=== PATIENT | female | born 1970 | race Native Hawaiian/Other Pacific Islander ===

== ENCOUNTER 2020-12-05 10:45 | Emergency (ER) | payer BC, OTHER ==
[2020-12-05] MEDS ORDERED: LORazepam 2 MG/ML VIAL IV ONE (11:03)
--- NOTE | 2020-12-05 11:04 | Emergency Department Report ---
HPI - General Chief Complaint: Allergic Reaction Time Seen by Provider: 12/05/20 10:47 - HPI HPI: Room 20 Patient is a 50-year-old female present with a chief complaint of vaccination reaction. The patient states she received Moderna COVID-19 vaccination this morning at 09:30. The patient states in less than 10 minutes she developed blurred vision, shortness of breath, numbness to the right hand and feeling as though her voice was not clear. Patient denies itching or pain of any type. The patient states her blurred vision has improved and her voice is improving but is not back to baseline. Patient states she still feels shortness of breath. Patient denied ever having any form of weakness ED Past Medical Hx - Past Medical History Previous Medical History?: No - Surgical History Hx Cholecystectomy: Yes (2007) Additional Surgical History: Gall bladder removed 2007 - Family History Family history: no significant - Social History Smoking Status: Never Smoker Substance Use Type: None - Medications Home Medications: Home Medications Medication Instructions Recorded Confirmed Last Taken Type LORazepam [Ativan] 0.5 mg PO BID PRN #5 tab 12/05/20 Unknown Rx ED Review of Systems ROS: Stated complaint: ALLERGIC REACTION Other details as noted in HPI Constitutional: no symptoms reported Eyes: vision change ENT: denies: throat pain Respiratory: shortness of breath Cardiovascular: denies: chest pain Endocrine: no symptoms reported Gastrointestinal: denies: abdominal pain Genitourinary: denies: dysuria Musculoskeletal: denies: back pain Neurological: paresthesias. denies: headache Physical Exam - Physical Exam Vital Signs: Vital Signs 12/05/20 10:49 Temperature 98.6 F Pulse Rate 84 Respiratory 18 Rate Blood Pressure 136/76 O2 Sat by Pulse 99 Oximetry Physical Exam: GENERAL: The patient is well-developed well-nourished female lying on stretcher not appearing to be in acute distress. [] HEENT: Normocephalic. Atraumatic. Extraocular motions are intact. Patient has moist mucous membranes. NECK: Supple. There is no stridor CHEST/LUNGS: Clear to auscultation. There is no respiratory distress noted. HEART/CARDIOVASCULAR: Regular. There is no tachycardia. There is no gallop rub or murmur. ABDOMEN: Abdomen is soft, nontender. Patient has normal bowel sounds. There is no abdominal distention. SKIN: There is no rash. There is no edema. There is no diaphoresis. NEURO: The patient is awake, alert, and oriented. The patient is cooperative. Patient appears slightly anxious. The patient has no focal neurologic deficits. The patient has normal speech. Cranial nerves II through XII grossly intact MUSCULOSKELETAL: There is no evidence of acute injury. ED Course Vital Signs 12/05/20 10:49 Temperature 98.6 F Pulse Rate 84 Respiratory 18 Rate Blood Pressure 136/76 O2 Sat by Pulse 99 Oximetry - Reevaluation(s) Reevaluation #1: 12/05/20 11:52 Patient states her symptoms are improving Reevaluation #2: 12/05/20 15:21 Patient states she feels strong now ED Medical Decision Making - Lab Data Result diagrams: 12/05/20 10:58 12/05/20 10:58 Laboratory Tests 12/05/20 12/05/20 12/05/20 10:58 10:58 10:59 WBC 6.6 RBC 3.86 Hgb 12.1 Hct 35.6 MCV 92 MCH 31 MCHC 34 RDW 13.3 Plt Count 300 Lymph % (Auto) 42.7 H Clare % (Auto) 2.9 Eos % (Auto) 0.5 Baso % (Auto) 0.2 Lymph # (Auto) 2.8 Clare # (Auto) 0.2 Eos # (Auto) 0.0 Baso # (Auto) 0.0 Seg Neutrophils % 53.7 Seg Neutrophils # 3.6 PT 12.6 INR 0.95 APTT 29.5 D-Dimer 173.47 Sodium 144 Potassium 3.7 Chloride 106.6 Carbon Dioxide 25 Anion Gap 16 BUN 8 Creatinine 0.5 L Estimated GFR > 60 BUN/Creatinine Ratio 16 Glucose 130 H Calcium 8.4 Total Bilirubin 0.30 AST 15 ALT 12 Alkaline Phosphatase 39 Total Creatine Kinase CK-MB (CK-2) CK-MB (CK-2) Rel Index Troponin T Total Protein 7.2 Albumin 4.1 Albumin/Globulin Ratio 1.3 12/05/20 12/05/20 10:59 14:20 WBC RBC Hgb Hct MCV MCH MCHC RDW Plt Count Lymph % (Auto) Clare % (Auto) Eos % (Auto) Baso % (Auto) Lymph # (Auto) Clare # (Auto) Eos # (Auto) Baso # (Auto) Seg Neutrophils % Seg Neutrophils # PT INR APTT D-Dimer Sodium Potassium Chloride Carbon Dioxide Anion Gap BUN Creatinine Estimated GFR BUN/Creatinine Ratio Glucose Calcium Total Bilirubin AST ALT Alkaline Phosphatase Total Creatine Kinase 156 H CK-MB (CK-2) 4.0 CK-MB (CK-2) Rel Index 2.5 Troponin T < 0.010 < 0.010 Total Protein Albumin Albumin/Globulin Ratio - EKG Data -: EKG Interpreted by Me EKG shows normal: sinus rhythm Rate: normal - EKG Data When compared to previous EKG there are: previous EKG unavailable Interpretation: other (No ischemic changes seen) - Radiology Data Radiology results: report reviewed (Chest x-ray), image reviewed (Chest x-ray) interpreted by me: Chest x-ray-no focal infiltrates, no pneumothorax. No foreign body seen [facility] [address] [place] [address] XRay Report Signed Patient: KERRY BOURGEOIS MR#: [id number] : 1970 Acct:[id number] Age/Sex: 50 / F ADM Date: 12/05/20 Loc: ED Attending Dr: Ordering Physician: STEPHANIE BARRON MD Date of Service: 12/05/20 Procedure(s): XR chest 1V ap Accession Number(s): [id number] cc: STEPHANIE BARRON MD Fluoro Time In Minutes: CHEST 1 VIEW 12/05/2020 10:17 AM INDICATION / CLINICAL INFORMATION: Shortness of breath. COMPARISON: None available. FINDINGS: SUPPORT DEVICES: None. HEART / MEDIASTINUM: No significant abnormality. LUNGS / PLEURA: No significant pulmonary or pleural abnormality. No pneumothorax. ADDITIONAL FINDINGS: No significant additional findings. IMPRESSION: 1. No acute findings. Signer Name: David Waite MD Signed: 12/05/2020 11:18 AM Workstation Name: [id number] Transcribed By: MARY JANE Dictated By: David Waite MD Electronically Authenticated By: David Waite MD Signed Date/Time: 12/05/201117 DD/ 17 TD/TT: Print Cancel - Differential Diagnosis Vaccination reaction, anxiety, PE, Critical care attestation.: If time is entered above; I have spent that time in minutes in the direct care of this critically ill patient, excluding procedure time. ED Disposition Clinical Impression: Anxiety, Vaccination reaction Disposition: DC- TO HOME OR SELFCARE Is pt being admited?: No Does the pt Need Aspirin: No Condition: Stable Instructions: Drug Allergy, Managing Anxiety, Adult Additional Instructions: Return to the emergency department should you develop worsening symptoms, inability to tolerate food or liquids, high fever or any other concerns Prescriptions: LORazepam [Ativan] 0.5 mg PO BID PRN #5 tab PRN Reason: Anxiety Referrals: PRIMARY CARE, [Primary Care Provider] - 3-5 Days Time of Disposition: 15:22
--- NOTE | 2020-12-05 11:23 | XRay Report ---
CHEST 1 VIEW 12/05/2020 10:17 AM INDICATION / CLINICAL INFORMATION: Shortness of breath. COMPARISON: None available. FINDINGS: SUPPORT DEVICES: None. HEART / MEDIASTINUM: No significant abnormality. LUNGS / PLEURA: No significant pulmonary or pleural abnormality. No pneumothorax. ADDITIONAL FINDINGS: No significant additional findings. IMPRESSION: 1. No acute findings. Signer Name: David Waite MD Signed: 12/05/2020 11:18 AM Workstation Name: [id number]
[2020-12-05] MEDS ORDERED: DEXTROSE 50% IN WATER (25GM) 50 ML SYRINGE IV ONE (11:44)
[2020-12-05 12:18] LABS: Basophils % (Auto) 0.2 % (0.0-1.8); Eosinophils % (Auto) 0.5 % (0.0-4.3); Hematocrit 35.6 % (30.3-42.9); Hemoglobin 12.1 gm/dl (10.1-14.3); Lymphocytes # (Auto) 2.8 K/mm3 (1.2-5.4); Lymphocytes % (Auto) 42.7 % (13.4-35.0); Mean Corpuscular HGB Conc 34 % (30-34); Mean Corpuscular Volume 92 fl (79-97); Monocytes # (Auto) 0.2 K/mm3 (0.0-0.8); Monocytes % (Auto) 2.9 % (0.0-7.3); Platelet Count 300 K/mm3 (140-440); Red Blood Count 3.86 M/mm3 (3.65-5.03); Red Cell Distribution Width 13.3 % (13.2-15.2)
[2020-12-05 12:30] LABS: INR 0.95 (0.87-1.13)
[2020-12-05 12:31] LABS: Partial Thromboplastin Time 29.5 Sec. (24.2-36.6)
[2020-12-05 12:42] LABS: Alanine Aminotransferase 12 units/L (7-56); Albumin 4.1 g/dL (3.9-5); Blood Urea Nitrogen 8 mg/dL (7-17); Calcium 8.4 mg/dL (8.4-10.2); Hemolysis Index 3
[2020-12-05 12:43] LABS: BUN/Creatinine Ratio 16
[2020-12-05 16:09] VITALS: BP 107/65
--- NOTE | 2020-12-06 13:33 | Electrocardiograph Report ---
[facility] Test Date: 2020-12-05 Test Time: 13:40:24 Pat Name: KERRY BOURGEOIS Department: Room: Gender: F Ecologist: SANDRA : 1970 Requested By: STEPHANIE BARRON Order Number: [id number] Reading MD: Ghassan Moore Measurements Intervals [place] Rate: 94 P: 56 MA: 160 QRS: 24 QRSD: 84 T: 18 QT: 386 QTc: 483 Interpretive Statements Sinus rhythm No previous ECG available for comparison Electronically Signed On 12-06-2020 13:33:25 EDT by Ghassan Moore
== END 2020-12-05 16:10 | disposition home or self-care (01) ==
LOC: ED 10:45
DX: F41.9 Anxiety disorder, unspecified (principal); T50.Z95A Adverse effect of other vaccines and biological substances, initial encounter; Z79.899 Other long term (current) drug therapy; Z91.018 Allergy to other foods; Z90.49 Acquired absence of other specified parts of digestive tract; Z98.890 Other specified postprocedural states; Y93.89 Activity, other specified
CPT/HCPCS: 36415; 71045; 80053; 82550; 82553; 84484; 85025; 85379; 85610; 85730; 93005; 96374; 99284; J2060